=== PATIENT | female | born 1965 | race Caucasian/White ===

== ENCOUNTER → 2021-11-09 | Day surgery (SDC) | payer OTHER ==
[~2021-11-09] VITALS: Ht 167.6 cm; Wt 76.2 kg
[~2021-11-09] MED LIST: DICLOFENAC SODI75 MG PO; LIPITOR20 MG PO; PRILOSEC20 MG PO; PRINIVIL10 MG PO
[2021-11-09 08:25] LABS: HCT 39.4 % (37.0-47.0); HGB 13.7 g/dl (12.5-16.0); MCH 33.7 pg (25.0-31.0); MCHC 34.8 g/dL (32.0-36.0); MPV 9.8 fL (6.0-9.5); RBC 4.06 M/uL (4.20-5.40); RDW 12.5 % (11.5-14.0); WBC 5.7 K/uL (4.0-10.5)
[2021-11-09 08:49] LABS: ALBUMIN 4.1 g/dL (3.4-5.0); BILIRUBIN - TOTAL 0.8 mg/dL (0.2-1.0); BUN/CREAT RATIO (CALC) 12.7 RATIO; CREATININE 0.79 mg/dL (0.51-0.95); GLOBULIN (CALCULATION) 3.3 g/dL; POTASSIUM 3.7 mmol/L (3.5-5.1); TOTAL PROTEIN 7.4 g/dL (6.4-8.2)
== END | disposition home or self-care (01) ==
LOC: FAS 10-26 10:15
PROVIDERS: Surgery
DX: K22.2 Esophageal obstruction (principal); K29.60 Other gastritis without bleeding; K20.80 Other esophagitis without bleeding
CPT/HCPCS: 36415; 80053; C1726; J2704; J7120